=== PATIENT | female | born 1995 | race Caucasian/White ===

== ENCOUNTER 2021-09-14 19:54 | Emergency (ER) | payer OTHER ==
[~2021-09-14] VITALS: Ht 170.2 cm; Wt 95.3 kg
--- NOTE | 2021-09-14 20:17 | NUR ---
TO ER BED FROM [facility]AB [facility] C/O ANXIETY X TODAY. PT NOT RESPONDING TO ANY QUESTIONS. V/S STABLE. NOT IN RESPIRATORY DISTRESS. AWAITING MD LE
--- NOTE | 2021-09-14 20:18 | NUR ---
COVID SWAB COLLECTD AND SENT TO LAB
--- NOTE | 2021-09-14 20:30 | NUR ---
SECOND [employer]ILDER AT BEDSIDE. PATIENT REFUSING BLOOD DRAW AT THIS TIME. PA MADE AWARE.
[2021-09-14] MEDS ORDERED: LORAZEPAM 1 MG TABLET ONE (20:47)
[2021-09-14] MEDS ORDERED: LORAZEPAM 1 MG TABLET PO ONE (21:00)
--- NOTE | 2021-09-14 21:32 | NUR ---
Patient discharged to home in stable condition. Written and verbal after care instructions given. Patient verbalizes understanding of instruction.
[2021-09-14 21:34] VITALS: BP 164/70
== END 2021-09-14 21:34 | disposition home or self-care (01) ==
LOC: ER 20:00
DX: F41.9 Anxiety disorder, unspecified (principal); F32.A Depression, unspecified